=== PATIENT | female | born 1950 | race Caucasian/White ===

== ENCOUNTER 2017-02-21 13:52 | Inpatient (IN) | payer OTHER, MEDICARE ==
[~2017-02-21] VITALS: Ht 162.6 cm; Wt 87.0 kg
[~2017-02-21 13:52] MED LIST: ACTOS; ACTOS45 MG PO; ADVAIR 250/501 DISK IH; AMARYL2 MG PO; AMOX TR-K CLV1 EAC4 PO; ASPIR 8181 M1 PO; ASPIRIN81 M1 PO; Advair HFA 115/21 IH; CIPRO500 MG PO; CIPROFLOXACIN500 M1 PO; CLOPIDOGREL75 MG PO; CRESTOR20 MG PO; CYANOCOBALAM1000 MCG PO; DOK PLUS TABLE1 EACH PO; FENOFIBRATE145 M1 PO; FENOFIBRATE160 M1 PO; FISH OIL500 MG PO; FLEXERIL10 MG PO; FOSINOPRIL SODI40 MG PO; GEMFIBROZIL600 MG PO; GLIPIZIDE XL10 MG PO; GLUCOPHAGE1000 MG PO; GLUCOPHAGE500 MG PO; GLUCOTROL XL10 MG PO; HYDROCODON-ACE1 EAC7 PO; KEFLEX500 MG PO; LEVEMIR100 UNIT/2 SC; LIDOCAINE700 MG TD; LOVASTATIN; LOVASTATIN40 MG PO; METFORMIN HCL1000 MG PO; METOPROLOL SUC100 MG PO; MEVACOR40 MG PO; MULTIVITAMIN1 EAC2 PO; Monopril PO; NICOTINE PATCH1 EAC2 TD; NORCO 5/3251 TABLET PO; NORVASC10 MG PO; NOVOLIN N100 UNITS/ SQ; NOVOLIN,HU100 UNITS1 SQ; NOVOLOG PE100 UNITS/ SC; Norvasc PO; ONGLYZA5 MG PO; PROVENTIL HFA6.7 GM IH; Proventil,Ventolin H IH; SPIRIVA RESPIMAT4 GM IH; SPIRIVA1 INHALATI IH; ST. JOSEPH ASPI81 MG PO; Tricor,Triglide PO; ZESTRIL,PRINIVI40 MG PO; ZITHROMAX Z-PA250 MG PO; predniSONE PO
[2017-02-21 14:40] LABS: EOSINOPHIL (%) 1.6 % (0-5); EOSINOPHIL COUNT 0.1 K/uL (0-0.3); HEMATOCRIT 43.8 % (36.0-46.0); IMMATURE GRANULOCYTE (%) 0.4 % (0.0-0.7); LYMPHOCYTE COUNT 2.3 K/uL (1.0-2.8); MCH 28.8 PG (29.0-34.0); MCHC 33.1 G/DL (30.0-36.0); MCV 86.9 FL (83-99); MEAN PLAT.VOLUME 10.8 uM^3 (9.5-12.4); MONOCYTE COUNT 0.2 K/uL (0-0.8); NEUTROPHIL (%) 52.5 % (45-76); PLATELET COUNT 153 K/uL (156-360); RBC DIS.WIDTH-CV 13.2 % (11.8-14.6); RED BLOOD COUNT 5.04 M/uL (3.80-5.20); WHITE BLOOD COUNT 5.7 K/uL (4.1-10.2)
[2017-02-21 14:52] LABS: CHLORIDE 98 mEq/L (99-109); POTASSIUM 4.2 mEq/L (3.7-5.4); SODIUM 132 mEq/L (136-147)
[2017-02-21 14:56] LABS: ANION GAP 13 MEQ/L (2-14)
[2017-02-21 14:57] LABS: TOTAL BILIRUBIN 0.7 mg/dL (0.0-1.0)
[2017-02-21 14:58] LABS: ALKALINE PHOSPHATASE 144 IU/L (3-129); GFR ESTIMATE (CALCULATED) 59 mL/min/
[2017-02-21 14:59] LABS: UREA NITROGEN (BUN) 14 mg/dL (9-23)
[2017-02-21 15:02] LABS: LIPASE 28 U/L (1.0-51.0)
[2017-02-21 15:04] LABS: GLUCOSE 568 mg/dL (70-99)
[2017-02-21 15:20] LABS: ADD MIUA? YES; BILIRUBIN NEGATIVE; BLOOD NEGATIVE; COLOR STRAW ((YELLOW)); GLUCOSE (STRIP) >=500; KETONES NEGATIVE; LEUKOCYTES NEGATIVE; NITRITE NEGATIVE; PROTEIN (STRIP) 100; SPECIFIC GRAVITY 1.029 (1.000-1.030); UROBILINOGEN 0.2 MG/DL (0.2-1.0)
[2017-02-21 15:26] LABS: BACTERIA NONE SEEN /HPF; EPITHELIAL CELLS RARE /HPF; MUCUS NONE SEEN /LPF; RED BLOOD CELLS 0-5 /HPF (0-5); UCUL ADDED? NO; WHITE BLOOD CELLS 0-5 /HPF (0-5)
[2017-02-21] MEDS ORDERED: VITAMIN D31000 UNI2 PO (18:37)
[2017-02-21] MEDS ORDERED: FISH OIL 1,0001 EAC7 PO (18:37)
[2017-02-21] MEDS ORDERED: Antibiotic PO (18:38)
[2017-02-21 18:55] LABS: POINT-OF-CARE METER ID UU13113702
[2017-02-21 21:47] VITALS: BP 178/90
[2017-02-22 03:29] VITALS: BP 143/77
[2017-02-22 07:17] LABS: ANION GAP 12 MEQ/L (2-14); CHLORIDE 105 MEQ/L (99-109); GFR ESTIMATE (CALCULATED) > 59 mL/min/; GLUCOSE 290 mg/dL (70-99); POTASSIUM 4.1 MEQ/L (3.7-5.4); SAMPLE HEMOLYSIS CHECK 0; SAMPLE ICTERIC CHECK 0; SAMPLE LIPEMIA CHECK 0; UREA NITROGEN (BUN) 13 mg/dL (9-23)
[2017-02-22 07:25] LABS: SODIUM 143 MEQ/L (136-147)
[2017-02-22 07:53] LABS: POINT-OF-CARE METER ID UU14162513
[2017-02-22 08:39] LABS: Estimated Average Glucose 375 mg/dL (70-123); HEMOGLOBIN A1c (GLYCOHEMOGLOB) 14.7 % HGB (Below 5.7)
[2017-02-22 08:45] VITALS: BP 155/89
[2017-02-22 11:54] LABS: POINT-OF-CARE METER ID UU13113700
[2017-02-22 12:06] VITALS: BP 151/72
[2017-02-22 17:06] LABS: POINT-OF-CARE METER ID UU13113831
[2017-02-22 21:00] VITALS: BP 127/62
[2017-02-22 21:33] LABS: POINT-OF-CARE METER ID UU14162513
[2017-02-23] VITALS (7 sets, daily range): BP systolic 128–156; BP diastolic 65–80
[2017-02-23 08:30] LABS: POINT-OF-CARE METER ID UU14162513
[2017-02-23 12:09] LABS: POINT-OF-CARE METER ID UU13113831
[2017-02-23 17:29] LABS: POINT-OF-CARE METER ID UU14149397
[2017-02-23 22:24] LABS: POINT-OF-CARE METER ID UU14149397
[2017-02-24 00:06] VITALS: BP 112/57
[2017-02-24 06:51] LABS: POINT-OF-CARE METER ID UU14188577
[2017-02-24 07:43] VITALS: BP 140/73
[2017-02-24 12:08] LABS: POINT-OF-CARE METER ID UU14188577
[2017-02-24] MEDS ORDERED: NOVOLIN N100 UNITS/ SQ (14:40)
[2017-02-24] MEDS ORDERED: GLIPIZIDE10 MG PO (14:40)
[2017-02-24] MEDS ORDERED: METFORMIN HCL500 MG PO (14:40)
[2017-02-25 17:58] LABS: POINT-OF-CARE METER ID UU14100415
== END 2017-02-24 15:14 | disposition home or self-care (01) | DRG 641 ==
LOC: EME 13:52 → 5WEST 19:52 → EDOF 19:52 → 5WEST 21:42 → 3EAST 02-23 17:10
PROVIDERS: Emergency Medicine; Family Medicine; Internal Medicine
DX: E87.1 Hypo-osmolality and hyponatremia (principal); R09.02 Hypoxemia; J98.11 Atelectasis; R10.32 Left lower quadrant pain; E87.2 Acidosis; K59.00 Constipation, unspecified; E11.65 Type 2 diabetes mellitus with hyperglycemia; I10 Essential (primary) hypertension; E78.5 Hyperlipidemia, unspecified; E66.9 Obesity, unspecified; J44.9 Chronic obstructive pulmonary disease, unspecified; Z68.32 Body mass index [BMI] 32.0-32.9, adult; Z91.11 Patient's noncompliance with dietary regimen; Z91.14 Patient's other noncompliance with medication regimen; Z79.02 Long term (current) use of antithrombotics/antiplatelets; Z86.73 Personal history of transient ischemic attack (TIA), and cerebral infarction without residual deficits; Z87.891 Personal history of nicotine dependence
CPT/HCPCS: 71010; 74176; 80053; 80069; 81003; 82948; 83036; 83605; 83690; 85025; 94640; 94640 76; 94799; 99202; 99281; 99285; G0378; J1644; J1815; J1885; J2270; J2405; J7030

== ENCOUNTER 2017-05-10 12:48 | Emergency (ER) | payer OTHER, MEDICARE ==
[~2017-05-10] VITALS: Ht 162.6 cm; Wt 75.6 kg
[~2017-05-10 12:48] MED LIST changes: +Antibiotic PO; +FISH OIL 1,0001 EAC7 PO; +GLIPIZIDE10 MG PO; +METFORMIN HCL500 MG PO; +VITAMIN D31000 UNI2 PO
[2017-05-10 15:28] LABS: EOSINOPHIL (%) 1.7 % (0-5); EOSINOPHIL COUNT 0.1 K/uL (0-0.3); HEMATOCRIT 46.1 % (36.0-46.0); IMMATURE GRANULOCYTE (%) 0.7 % (0.0-0.7); IMMATURE GRANULOCYTE COUNT 0.1 K/uL; INSTRUMENT ABS NEUTROPHIL CT 4.4 K/uL; LYMPHOCYTE COUNT 2.2 K/uL (1.0-2.8); MCH 28.7 PG (29.0-34.0); MCHC 32.8 G/DL (30.0-36.0); MCV 87.5 FL (83-99); MONOCYTE (%) 5.7 % (3-12); MONOCYTE COUNT 0.4 K/uL (0-0.8); NEUTROPHIL (%) 60.7 % (45-76); NEUTROPHIL COUNT 4.4 K/uL (1.8-6.4); PLATELET COUNT 152 K/uL (156-360); RBC DIS.WIDTH-CV 13.1 % (11.8-14.6); RBC DIS.WIDTH-SD 41.6 % (39-53); RED BLOOD COUNT 5.27 M/uL (3.80-5.20); WHITE BLOOD COUNT 7.3 K/uL (4.1-10.2)
[2017-05-10 15:34] LABS: CHLORIDE 99 mEq/L (99-109); SODIUM 135 mEq/L (136-147)
[2017-05-10 15:37] LABS: ANION GAP 9 MEQ/L (2-14)
[2017-05-10 15:38] LABS: TOTAL BILIRUBIN 1.3 mg/dL (0.0-1.0)
[2017-05-10 15:40] LABS: ALKALINE PHOSPHATASE 92 IU/L (3-129); GFR ESTIMATE (CALCULATED) > 59 mL/min/
[2017-05-10 15:41] LABS: UREA NITROGEN (BUN) 15 mg/dL (9-23)
[2017-05-10 15:45] LABS: GLUCOSE 478 mg/dL (70-99)
[2017-05-10] MEDS ORDERED: PERCOCET 5/31 TABLET PO (17:31)
[2017-05-10 18:01] VITALS: BP 160/81
[2017-05-10 18:18] LABS: ADD MIUA? YES; BILIRUBIN NEGATIVE; BLOOD SMALL; COLOR STRAW ((YELLOW)); GLUCOSE (STRIP) >=500; KETONES NEGATIVE; LEUKOCYTES MODERATE; NITRITE NEGATIVE; PROTEIN (STRIP) 30; SPECIFIC GRAVITY 1.022 (1.000-1.030); UROBILINOGEN 0.2 MG/DL (0.2-1.0)
[2017-05-10 18:22] LABS: BACTERIA NONE SEEN /HPF; EPITHELIAL CELLS RARE /HPF; MUCUS NONE SEEN /LPF; UCUL ADDED? NO; WHITE BLOOD CELLS 30-40 /HPF (0-5); WHITE BLOOD CELLS CLUMP RARE /HPF (0-5)
[2017-05-10] MEDS ORDERED: VANTIN100 MG PO (19:09)
[2017-05-13 12:06] LABS: POINT-OF-CARE METER ID UU13113747
[2017-05-13 12:06] LABS: POINT-OF-CARE METER ID UU13113747
== END 2017-05-10 19:39 | disposition home or self-care (01) ==
LOC: EME 12:48
PROVIDERS: Emergency Medicine; Physician Assistant
PROC: 2W38X1Z Immobilization of Right Upper Extremity using Splint (ICD-10-PCS; principal; 2017-05-10)
DX: S62.001A Unspecified fracture of navicular [scaphoid] bone of right wrist, initial encounter for closed fracture (principal); W03.XXXA Other fall on same level due to collision with another person, initial encounter; E11.65 Type 2 diabetes mellitus with hyperglycemia; N39.0 Urinary tract infection, site not specified; G89.29 Other chronic pain; R10.9 Unspecified abdominal pain; Y92.000 Kitchen of unspecified non-institutional (private) residence as the place of occurrence of the external cause; Y93.01 Activity, walking, marching and hiking; Z87.891 Personal history of nicotine dependence; Z79.4 Long term (current) use of insulin; J44.9 Chronic obstructive pulmonary disease, unspecified; I10 Essential (primary) hypertension; E78.5 Hyperlipidemia, unspecified; Z86.73 Personal history of transient ischemic attack (TIA), and cerebral infarction without residual deficits
CPT/HCPCS: 70486; 72070; 72100; 73110; 73130; 74020; 80053; 81003; 82948; 85025; 99281; 99285; J7120

== ENCOUNTER 2017-05-12 16:08 | Inpatient (IN) | payer OTHER, MEDICARE ==
[~2017-05-12] VITALS: Ht 162.6 cm; Wt 75.6 kg
[~2017-05-12 16:08] MED LIST changes: +PERCOCET 5/31 TABLET PO; +VANTIN100 MG PO
[2017-05-12 16:53] LABS: MCH 28.6 PG (29.0-34.0); MCHC 32.6 G/DL (30.0-36.0); MCV 87.6 FL (83-99); MEAN PLAT.VOLUME 10.3 uM^3 (9.5-12.4); PLATELET COUNT 170 K/uL (156-360); RBC DIS.WIDTH-CV 13.1 % (11.8-14.6); RBC DIS.WIDTH-SD 41.7 % (39-53); RED BLOOD COUNT 5.25 M/uL (3.80-5.20); WHITE BLOOD COUNT 7.9 K/uL (4.1-10.2)
[2017-05-12 17:02] LABS: CHLORIDE 105 mEq/L (99-109); POTASSIUM 3.7 mEq/L (3.7-5.4); SODIUM 139 mEq/L (136-147)
[2017-05-12 17:05] LABS: ANION GAP 10 MEQ/L (2-14)
[2017-05-12 17:07] LABS: GLUCOSE 102 mg/dL (70-99)
[2017-05-12 17:08] LABS: GFR ESTIMATE (CALCULATED) > 59 mL/min/
[2017-05-12 17:09] LABS: UREA NITROGEN (BUN) 13 mg/dL (9-23)
[2017-05-12 17:50] LABS: PTT 26.3 (25-32)
[2017-05-12 17:57] LABS: HDL CHOLESTEROL 37 MG/DL (Desirable>=50); NON-HDL CHOLESTEROL 190 mg/dL (Desirable<160); TOTAL CHOLESTEROL 227 mg/dL (Desirable<200); TRIGLYCERIDES 512 MG/DL (Normal: <150); TROP-I INTERPRETATION NEGATIVE; TROPONIN-I < 0.01 ng/mL (0.0-0.30)
[2017-05-12] MEDS ORDERED: NOVOLIN N100 UNITS/ SC (19:10)
[2017-05-12] MEDS ORDERED: RAMIPRIL1.25 MG PO (19:11)
[2017-05-12 20:05] LABS: SAMPLE HEMOLYSIS CHECK 0; SAMPLE ICTERIC CHECK 0; SAMPLE LIPEMIA CHECK 0
[2017-05-12 20:12] LABS: SERUM ETHYL ALCOHOL < 10 mg/dL
[2017-05-12 21:29] VITALS: BP 174/78
[2017-05-12 23:51] VITALS: BP 189/87
[2017-05-13 04:00] VITALS: BP 154/70
[2017-05-13 07:10] LABS: Estimated Average Glucose 349 mg/dL (70-123); HEMOGLOBIN A1c (GLYCOHEMOGLOB) 13.8 % HGB (Below 5.7)
[2017-05-13 07:20] VITALS: BP 150/71
[2017-05-13 11:37] VITALS: BP 160/80
[2017-05-13 11:51] LABS: POINT-OF-CARE METER ID UU13113717
[2017-05-13 17:15] VITALS: BP 142/68
[2017-05-13 19:55] VITALS: BP 151/69
[2017-05-13 23:51] VITALS: BP 137/65
[2017-05-14 03:27] VITALS: BP 149/88
[2017-05-14 07:45] VITALS: BP 147/68
[2017-05-14 11:08] VITALS: BP 152/68
[2017-05-14 15:14] VITALS: BP 108/54
[2017-05-14 19:52] VITALS: BP 141/66
[2017-05-14 21:11] LABS: POINT-OF-CARE METER ID UU13113717
[2017-05-15 00:02] VITALS: BP 171/77
[2017-05-15 04:00] VITALS: BP 163/76
[2017-05-15 08:03] LABS: POINT-OF-CARE METER ID UU14174225
[2017-05-15 08:11] VITALS: BP 176/82
[2017-05-15] MEDS ORDERED: ATORVASTATIN CA40 MG PO (09:02)
[2017-05-15] MEDS ORDERED: CLOPIDOGREL75 MG PO (09:02)
[2017-05-15] MEDS ORDERED: LISINOPRIL10 MG PO (12:00)
[2017-05-15 12:18] LABS: POINT-OF-CARE METER ID UU14174225
== END 2017-05-15 15:58 | DRG 65 ==
LOC: EME 16:08 → 5SOUTH 19:25 → EDOF 19:25 → 5SOUTH 21:05
PROVIDERS: Emergency Medicine; Hospitalist; Internal Medicine
DX: I63.8 Other cerebral infarction (principal); E11.649 Type 2 diabetes mellitus with hypoglycemia without coma; I69.351 Hemiplegia and hemiparesis following cerebral infarction affecting right dominant side; E78.2 Mixed hyperlipidemia; G89.29 Other chronic pain; I10 Essential (primary) hypertension; I69.341 Monoplegia of lower limb following cerebral infarction affecting right dominant side; J44.9 Chronic obstructive pulmonary disease, unspecified; R29.810 Facial weakness; R47.01 Aphasia; S62.001D Unspecified fracture of navicular [scaphoid] bone of right wrist, subsequent encounter for fracture with routine healing; W19.XXXD Unspecified fall, subsequent encounter; Z68.28 Body mass index [BMI] 28.0-28.9, adult; Z79.4 Long term (current) use of insulin; Z79.899 Other long term (current) drug therapy; Z83.3 Family history of diabetes mellitus; Z82.49 Family history of ischemic heart disease and other diseases of the circulatory system; M19.90 Unspecified osteoarthritis, unspecified site; Z87.442 Personal history of urinary calculi; Z91.19 Patient's noncompliance with other medical treatment and regimen; R10.9 Unspecified abdominal pain; R26.2 Difficulty in walking, not elsewhere classified; R42 Dizziness and giddiness; Z87.891 Personal history of nicotine dependence; E78.1 Pure hyperglyceridemia; R15.9 Full incontinence of feces; N39.0 Urinary tract infection, site not specified; E66.9 Obesity, unspecified; R47.1 Dysarthria and anarthria
CPT/HCPCS: 70450; 70486; 70551; 71020; 72070; 72100; 73110; 73130; 74000; 74020; 80048; 80053; 80061; 80306 90; 81003; 82948; 83036; 84484; 85025; 85027; 85610; 85730; 93005; 93306; 93880; 94640; 94640 76; 99281; 99285; G0480; J1650; J1815; J2060; J7120

== ENCOUNTER 2017-07-16 14:26 | Emergency (ER) | payer OTHER, MEDICARE ==
[~2017-07-16] VITALS: Ht 162.6 cm; Wt 78.7 kg
[~2017-07-16 14:26] MED LIST changes: +ATORVASTATIN CA40 MG PO; +LISINOPRIL10 MG PO; +NOVOLIN N100 UNITS/ SC; +RAMIPRIL1.25 MG PO
[2017-07-16 15:13] LABS: HEMATOCRIT 41.7 % (36.0-46.0); MCH 28.7 PG (29.0-34.0); MCHC 32.4 G/DL (30.0-36.0); MCV 88.5 FL (83-99); MEAN PLAT.VOLUME 9.9 uM^3 (9.5-12.4); PLATELET COUNT 185 K/uL (156-360); RBC DIS.WIDTH-CV 13.5 % (11.8-14.6); RBC DIS.WIDTH-SD 43.9 % (39-53); RED BLOOD COUNT 4.71 M/uL (3.80-5.20); WHITE BLOOD COUNT 10.8 K/uL (4.1-10.2)
[2017-07-16 15:22] LABS: CHLORIDE 106 mEq/L (99-109); POTASSIUM 4.1 mEq/L (3.7-5.4); SODIUM 145 mEq/L (136-147)
[2017-07-16 15:24] LABS: GLUCOSE 107 mg/dL (70-99)
[2017-07-16 15:25] LABS: ANION GAP 11 MEQ/L (2-14)
[2017-07-16 15:27] LABS: ALKALINE PHOSPHATASE 81 IU/L (3-129); GFR ESTIMATE (CALCULATED) 59 mL/min/
[2017-07-16 15:29] LABS: UREA NITROGEN (BUN) 18 mg/dL (9-23)
[2017-07-16 15:31] LABS: LIPASE 20 U/L (1.0-51.0)
[2017-07-16 15:34] LABS: TROP-I INTERPRETATION NEGATIVE; TROPONIN-I < 0.01 ng/mL (0.0-0.30)
[2017-07-16 16:48] LABS: ADD MIUA? YES; BILIRUBIN NEGATIVE; BLOOD NEGATIVE; COLOR YELLOW ((YELLOW)); GLUCOSE (STRIP) 50; KETONES NEGATIVE; LEUKOCYTES MODERATE; NITRITE POSITIVE; PROTEIN (STRIP) 100; SPECIFIC GRAVITY 1.013 (1.000-1.030); UROBILINOGEN 0.2 MG/DL (0.2-1.0)
[2017-07-16 16:56] LABS: BACTERIA RARE /HPF; EPITHELIAL CELLS RARE /HPF; HYALINE CASTS 0-5 /LPF; MUCUS TRACE /LPF; RED BLOOD CELLS 0-5 /HPF (0-5); UCUL ADDED? YES; WHITE BLOOD CELLS TNTC /HPF (0-5)
[2017-07-16] MEDS ORDERED: KEFLEX500 MG PO (17:10)
[2017-07-16] MEDS ORDERED: NORCO 5/3251 TABLET PO (17:10)
[2017-07-16] MEDS ORDERED: CIPRO500 MG PO (17:13)
[2017-07-16 18:16] VITALS: BP 138/68
== END 2017-07-16 18:18 | disposition home or self-care (01) ==
LOC: EME 14:26
PROVIDERS: Emergency Medicine
DX: N39.0 Urinary tract infection, site not specified (principal); G89.29 Other chronic pain; R10.31 Right lower quadrant pain; R10.11 Right upper quadrant pain; E11.9 Type 2 diabetes mellitus without complications; Z79.4 Long term (current) use of insulin; E78.5 Hyperlipidemia, unspecified; I10 Essential (primary) hypertension; Z86.73 Personal history of transient ischemic attack (TIA), and cerebral infarction without residual deficits; Z87.891 Personal history of nicotine dependence; Z90.49 Acquired absence of other specified parts of digestive tract
CPT/HCPCS: 80053; 81003; 83690; 84484; 85027; 87077; 87086; 87186; 93005; 99281; 99285; J2270